=== PATIENT | female | born 1955 | race Caucasian/White ===

== ENCOUNTER → 2016-10-15 13:03 | Outpatient (CLI) | payer BC | END | disposition home or self-care (01) | LOC: D.MRI 13:03 | DX: M54.30 Sciatica, unspecified side (principal) ==

== ENCOUNTER → 2017-10-07 23:53 | Emergency (ER) | payer BC | END | disposition home or self-care (01) | LOC: D.ER 23:53 | DX: H66.92 Otitis media, unspecified, left ear (principal); F17.200 Nicotine dependence, unspecified, uncomplicated; E11.9 Type 2 diabetes mellitus without complications ==

== ENCOUNTER 2017-10-10 20:37 | Emergency (ER) | payer BC | END 2017-10-10 21:30 | disposition left against medical advice (07) | LOC: D.ER 20:37 | DX: H92.01 Otalgia, right ear (principal) ==

== ENCOUNTER 2019-04-09 08:00 | Outpatient (CLI) | payer BC | END 2019-04-09 23:59 | disposition home or self-care (01) | LOC: D.MAMMO 08:00 | PROVIDERS: ATTEND Family Medicine | DX: Z12.31 Encounter for screening mammogram for malignant neoplasm of breast (principal) ==

== ENCOUNTER 2019-04-27 08:00 | Outpatient (CLI) | payer BC | END 2019-04-27 23:59 | disposition home or self-care (01) | LOC: D.MAMMO 08:00 | PROVIDERS: ATTEND Family Medicine | DX: R92.8 Other abnormal and inconclusive findings on diagnostic imaging of breast (principal) ==